=== PATIENT | female | born 1950 | race Caucasian/White ===

== ENCOUNTER 2016-10-23 23:49 | Emergency (ER) | payer MEDICARE ==
[2016-10-24] MEDS ORDERED: Morphine INJ* 4 MG/ML 1 ML CARPUJECT SUBCUT ONE (00:25)
[2016-10-24] MEDS ORDERED: Morphine INJ* 10 MG/ML 1 ML CARPUJECT SUBCUT ONE (02:26)
[2016-10-24] MEDS ORDERED: oxyCODONE/Acetamin 5/325 MG* TAB PO ONE (02:27)
[2016-10-24 03:47] VITALS: BP 106/68
--- NOTE | 2016-10-24 07:52 | RAD ---
HISTORY: Fall, left arm pain COMPARISONS: None VIEWS: 6, Frontal internal rotation, external rotation, outlet, and axillary views of the left shoulder with frontal internal and external rotation views of the left humerus FINDINGS: BONE DENSITY: Normal. BONES: There is a comminuted, angulated, and displaced fracture of the surgical neck of the left humerus. JOINTS: There is no arthropathy. ALIGNMENT: There is anterior-inferior dislocation of the humeral head with respect to the glenoid fossa SOFT TISSUES: Unremarkable. OTHER FINDINGS: None. IMPRESSION: FRACTURE DISLOCATION OF THE PROXIMAL LEFT HUMERUS
--- NOTE | 2016-10-29 06:22 | ED ---
Marlin Landis SooYoung, scribed for Tato Villegas MD on 10/24/16 at 0030 . Upper Extremity Pain - HPI Summary HPI Summary: A 66 y/o F presents to ED with LUE pain onset NARROW [employer]. Pt states she tripped on a step and landed on her arm. She has pain from her elbow up to her neck. She is able to move her fingers. Denies being on blood thinners. - History of Current Complaint Chief Complaint: EDShoulderClavicleInj Stated Complaint: FALL/ARM INJURY Time Seen by Provider: 10/24/16 00:23 Hx Obtained From: Patient, Family/Bone Crusher Onset/Duration: Still Present Timing: Constant Severity Currently: Severe Pain Location: Shoulder - L Associated Signs & Symptoms: Positive: Neck Pain - L - Allergies/Home Medications Allergies/Adverse Reactions: Allergies Allergy/AdvReac Type Severity Reaction Status Date / Time Ciprofloxacin [From Cipro] Allergy Unknown Verified 10/24/16 00:29 Reaction Details Diazepam [From Valium] Allergy Unknown Verified 10/24/16 00:29 Reaction Details Penicillins [PCN] Allergy Unknown Verified 10/24/16 00:29 Reaction Details PMH/Surg Hx/FS Hx/Imm Hx Previously Healthy: No Sensory History: Denies: Hx Eye Prosthesis, Hx Legally Blind Opthamlomology History: Denies: Hx Eye Prosthesis, Hx Legally Blind - Cancer History Cancer Type, Location and Year: Breast CA Infectious Disease History: Reports: Traveled Outside the [place] in Last 30 Days - [place] - Social History Occupation: Unemployed - OTHER Lives: With Family Review of Systems Negative: Fever Positive: Other - pos: LUE pain All Other Systems Reviewed And Are Negative: Yes Physical Exam Triage Information Reviewed: Yes Vital Signs On Initial Exam: Initial Vitals Temp Pulse Resp BP Pulse Ox 97.6 F 60 22 126/75 94 10/24/16 00:22 10/24/16 00:22 10/24/16 00:22 10/24/16 00:22 10/24/16 00:22 Vital Signs Reviewed: Yes Appearance: Positive: Well-Appearing, Pain Distress - mild [pain Skin: Positive: Skin Color Reflects Adequate Perfusion Head/Face: Positive: Normal Head/Face Inspection Eyes: Positive: [place] ENT: Positive: Hearing grossly normal Neck: Positive: Supple Respiratory/Lung Sounds: Positive: Clear to Auscultation, Breath Sounds Present Cardiovascular: Positive: RRR Abdomen Description: Positive: Nontender, Soft Bowel Sounds: Positive: Present Musculoskeletal: Positive: Other - obvious lt humeral deformity, pain with movement Neurological: Positive: Alert, Oriented to Person Place, Time, NV Bundle Intact Distally Psychiatric: Positive: Affect/Mood Appropriate Diagnostics - Vital Signs Vital Signs Temp Pulse Resp BP Pulse Ox 10/24/16 03:45 98.3 F 78 106/68 10/24/16 02:34 20 10/24/16 00:45 22 10/24/16 00:22 97.6 F 60 22 126/75 94 - Laboratory Lab Statement: Any lab studies that have been ordered have been reviewed, and results considered in the medical decision making process. - Radiology Shoulder XR Xray Interpretation: Positive (See Comments) - Displaced humoral head fracture. Radiology Interpretation Completed By: ED Physician Humerus XR Xray Interpretation: Positive (See Comments) - Displaced humoral head fracture. Radiology Interpretation Completed By: ED Physician Re-Evaluation - Re-Evaluation 1 Re-Evaluation Time: 02:30 Change: Improved Comment: Discussing XR results with pt. Pt is improved but still in pain. 2 Re-Evaluation Time: 03:05 Change: Improved Comment: Pt is improved. Will D/C home to f/u with ortho. Course/Dx - Course Course Of Treatment: Pt is a 66 y/o F presenting with LUE pain onset NARROW [employer]ER. Pt states she tripped on a step and landed on her arm. She has pain from her elbow up to her neck. She is able to move her fingers. Denies being on blood thinners. Pt given Morphine for pain in ED. XR shows a displaced humoral head fracture. - Diagnoses Provider Diagnoses: Humerus head fracture Discharge - Discharge Plan Condition: Improved Disposition: HOME Patient Education Materials: Proximal Humerus Fracture (ED) Referrals: [facility] [Outside] Cortez Espitia MD [Medical Doctor] - 1 Day No Primary Care Phys,NOPCP [Primary Care Provider] - Additional Instructions: Follow up with carol Joyce, tomorrow. Please return to the ED if you experience new or worsening symptoms. The documentation as recorded by the Marlin salinas SooYoung accurately reflects the service I personally performed and the decisions made by me, Tato Villegas MD.
== END 2016-10-24 03:28 | disposition home or self-care (01) ==
LOC: ED 23:49
DX: S42.202A Unspecified fracture of upper end of left humerus, initial encounter for closed fracture (principal); W19.XXXA Unspecified fall, initial encounter; Y93.9 Activity, unspecified; Y92.9 Unspecified place or not applicable
CPT/HCPCS: 96374; 99282; A9270-GY; J2270